=== PATIENT | male | born 1960 | race Caucasian/White ===

== ENCOUNTER 2017-04-29 16:16 | Outpatient (CLI) | payer OTHER, MEDICAID | END 2017-04-29 18:00 | disposition home or self-care (01) | LOC: SRD 16:16 | PROVIDERS: ATTEND Family Medicine | DX: M48.07 Spinal stenosis, lumbosacral region (principal); M47.897 Other spondylosis, lumbosacral region; M12.88 Other specific arthropathies, not elsewhere classified, other specified site; M25.551 Pain in right hip; M25.552 Pain in left hip | CPT/HCPCS: 72110; 73521; 74021 ==